=== PATIENT | male | born 1970 | race Hispanic/Latino ===

== ENCOUNTER 2018-10-02 14:22 | Emergency (ER) | payer MEDICARE ==
[~2018-10-02] VITALS: Ht 170.2 cm; Wt 70.0 kg
[~2018-10-02 14:22] MED LIST: ACTOS30 MG OR; ACTOS30 MG PO; AMITRIPTYLIN25 MG OR; AMOXICILLIN500 MG PO; DIABETA5 MG OR; DOESN'T KNOW; ENALAPRIL5 MG OR; ENALAPRIL5 MG PO; GLYBURIDE/METFO1 TAB PO; LANTUS100 MG/ML SC; MORPHINE SUL30 MG OR; NEXIUM40 M1 PO; NOVOLOG FL100 UNIT/M; OXYCODONE15 MG OR; PREVACID30 M1 OR; SIMVASTATIN20 MG PO; VISTARIL25 MG OR
[2018-10-02] MEDS ORDERED: ZOFRAN ODT8 MG PO (14:50)
[2018-10-02] MEDS ORDERED: NEXIUM40 MG PO (14:51)
[2018-10-02] MEDS ORDERED: SIMVASTATIN10 MG PO (14:52)
[2018-10-02] MEDS ORDERED: ROXICODONE15 M1 PO (14:53)
[2018-10-02] MEDS ORDERED: OXYCONTIN10 MG PO (14:54)
[2018-10-02] MEDS ORDERED: GABAPENTIN100 MG PO (15:13)
[2018-10-02] MEDS ORDERED: INVOKAMET 150-11 TAB PO (15:13)
[2018-10-02] MEDS ORDERED: TRESIBA FL100 UNIT/M (15:15)
[2018-10-02 15:18] LABS: HEMATOCRIT 36.5 % (39.0-50.0); HEMOGLOBIN 11.3 g/dl (14.0-18.0); IMMATURE GRANULOCYTES 0.3 % (0.0-5.0); MEAN CELL VOLUME 79.3 fL CALC (80.0-100.0); MEAN CORPUSCULAR HGB 24.6 pG CALC (26.0-32.0); NEUT# 5.2 thou/uL (1.82-7.42); RED BLOOD COUNT 4.6 mill/uL (4.70-6.10); RED CELL DISTRI WIDTH 15.6 % (11.5-15.5)
[2018-10-02 15:52] LABS: ALBUMIN 4.3 g/dL (3.2-5.0); ALKALINE PHOSPHATASE 77 u/l (38-126); ANION GAP 19 (6-22 (CALC)); BILIRUBIN, TOTAL 0.3 mg/dL (0.0-1.4); BUN 10 mg/dL (9-20); BUN/CREATININE RATIO 19 (12-20 (CALC)); CARBON DIOXIDE 24 mmol/l (22-30); CHLORIDE 98 mmol/l (95-108); CREATININE 0.5 mg/dL (0.7-1.3); GFR > 60 ML/MIN (>=60 (CALC)); GFR FOR AFR.AMER. > 60 ML/MIN (>=60 (CALC)); POTASSIUM 4.5 mmol/l (3.5-5.1); SGOT/AST 20 u/l (17-59); SODIUM 136 mmol/l (137-146); TOTAL PROTEIN 7.5 g/dL (6.3-8.2)
[2018-10-02 16:30] VITALS: BP 125/72
[2018-10-02] MEDS ORDERED: XANAX0.5 MG PO (16:30)
== END 2018-10-02 17:09 | disposition home or self-care (01) ==
LOC: ED 14:22
PROVIDERS: Emergency Medicine
DX: F43.0 Acute stress reaction (principal); E11.65 Type 2 diabetes mellitus with hyperglycemia; Z79.4 Long term (current) use of insulin; I10 Essential (primary) hypertension; C18.9 Malignant neoplasm of colon, unspecified

== ENCOUNTER 2020-03-25 12:29 | Emergency (ER) | payer MEDICARE ==
[~2020-03-25] VITALS: Ht 170.2 cm; Wt 93.2 kg
[~2020-03-25 12:29] MED LIST changes: +GABAPENTIN100 MG PO; +INVOKAMET 150-11 TAB PO; +NEXIUM40 MG PO; +OXYCONTIN10 MG PO; +ROXICODONE15 M1 PO; +SIMVASTATIN10 MG PO; +TRESIBA FL100 UNIT/M; +XANAX0.5 MG PO; +ZOFRAN ODT8 MG PO
[2020-03-25 14:10] VITALS: BP 137/61
== END 2020-03-25 14:10 ==
LOC: ED 12:29
DX: S68.622A Partial traumatic transphalangeal amputation of right middle finger, initial encounter (principal); I10 Essential (primary) hypertension; E11.9 Type 2 diabetes mellitus without complications; W23.0XXA Caught, crushed, jammed, or pinched between moving objects, initial encounter; Y93.89 Activity, other specified; Y92.89 Other specified places as the place of occurrence of the external cause; Y99.0 Civilian activity done for income or pay; Z79.4 Long term (current) use of insulin

== ENCOUNTER 2020-10-22 23:07 | Inpatient (IN) | payer MEDICARE ==
[~2020-10-22] VITALS: Ht 152.4 cm; Wt 77.0 kg
[2020-10-23] VITALS (19 sets, daily range): BP systolic 91–144; BP diastolic 49–82
[2020-10-23 00:13] LABS: HEMATOCRIT 41.3 % (39.0-50.0); HEMOGLOBIN 13.6 g/dl (14.0-18.0); IMMATURE GRANULOCYTES 0.3 % (0.0-5.0); MEAN CELL VOLUME 89.2 fL CALC (80.0-100.0); MEAN CORPUSCULAR HGB 29.4 pG CALC (26.0-32.0); MEAN CORPUSCULAR HGB CONC 32.9 g/dL CAL (32.0-36.0); NEUT# 8.46 thou/uL (1.82-7.42); RED BLOOD COUNT 4.63 mill/uL (4.70-6.10); RED CELL DISTRI WIDTH 15.1 % (11.5-15.5)
[2020-10-23 00:32] LABS: ALBUMIN 4.4 g/dL (3.2-5.0); ALKALINE PHOSPHATASE 62 u/l (38-126); BUN 11 mg/dL (9-20); BUN/CREATININE RATIO 14 (12-20 (CALC)); CHLORIDE 94 mmol/l (95-108); CREATININE 0.8 mg/dL (0.7-1.3); GFR > 60 ML/MIN (>=60 (CALC)); GFR FOR AFR.AMER. > 60 ML/MIN (>=60 (CALC)); POTASSIUM 3.9 mmol/l (3.5-5.1); SGOT/AST 47 u/l (17-59); TOTAL PROTEIN 7.9 g/dL (6.3-8.2)
[2020-10-23 00:40] LABS: ANION GAP 25 (6-22 (CALC)); BILIRUBIN, TOTAL 0.6 mg/dL (0.0-1.4); CARBON DIOXIDE 15 mmol/l (22-30); SODIUM 130 mmol/l (137-146)
[2020-10-23 00:44] LABS: MYOGLOBIN 49 ng/mL (0 - 121)
[2020-10-23 03:12] LABS: URINE BILIRUBIN - DIPSTICK NEGATIVE (NEGATIVE); URINE BLOOD DIPSTICK TRACE-INTACT (NEGATIVE); URINE CLARITY CLEAR; URINE COLOR YELLOW; URINE GLUCOSE - DIPSTICK >=1000 mg/dL (NEGATIVE); URINE KETONE >=80 mg/dL (NEGATIVE); URINE LEUK ESTERASE NEGATIVE (Negative); URINE NITRITE - DIPSTICK NEGATIVE (Negative); URINE PROTEIN - DIPSTICK 30 mg/dL (NEG-TRACE); URINE SPECIFIC GRAVITY 1.015; URINE UROBILINOGEN - DIPSTICK 0.2 E.U./dL (0.2)
[2020-10-23 03:25] LABS: URINE BACTERIA FEW hpf; URINE EPITHELIAL CELLS FEW EPI/hpf (0-FEW); URINE WBC 0-2 WBC/hpf (0-5)
[2020-10-23] MEDS ORDERED: MIRTAZAPINE15 MG PO (07:05)
[2020-10-23] MEDS ORDERED: ENALAPRIL10 MG PO (07:05)
[2020-10-23] MEDS ORDERED: OMEPRAZOLE DR40 MG PO (07:05)
[2020-10-23] MEDS ORDERED: ZITHROMAX Z-PA250 MG PO (07:06)
[2020-10-23] MEDS ORDERED: BUPROPION HCL150 M1 PO (07:06)
[2020-10-23] MEDS ORDERED: VIRTUSSIN A/C 11 SOL PO (07:06)
[2020-10-23] MEDS ORDERED: XULTOPHY 100/3.1 INJ SC (07:07)
[2020-10-23] MEDS ORDERED: XELODA500 MG PO (07:07)
[2020-10-23] MEDS ORDERED: MORPHINE SUL30 M3 PO (07:08)
[2020-10-23] MEDS ORDERED: SYNJARDY PO (07:09)
[2020-10-23] MEDS ORDERED: NOVOLIN R100 UNIT/1 SC (07:09)
[2020-10-23] MEDS ORDERED: SIMVASTATIN20 MG PO (07:09)
[2020-10-24] VITALS (7 sets, daily range): BP systolic 99–151; BP diastolic 48–70
[2020-10-24 05:53] LABS: HEMATOCRIT 42.7 % (39.0-50.0); HEMOGLOBIN 13.4 g/dl (14.0-18.0); MEAN CELL VOLUME 91.2 fL CALC (80.0-100.0); MEAN CORPUSCULAR HGB 28.6 pG CALC (26.0-32.0); MEAN CORPUSCULAR HGB CONC 31.4 g/dL CAL (32.0-36.0); NEUT# 11.93 thou/uL (1.82-7.42); RED BLOOD COUNT 4.68 mill/uL (4.70-6.10); RED CELL DISTRI WIDTH 15.1 % (11.5-15.5)
[2020-10-24 06:05] LABS: BUN 14 mg/dL (9-20); BUN/CREATININE RATIO 23 (12-20 (CALC)); CREATININE 0.6 mg/dL (0.7-1.3); GFR > 60 ML/MIN (>=60 (CALC)); GFR FOR AFR.AMER. > 60 ML/MIN (>=60 (CALC)); SODIUM 135 mmol/l (137-146)
[2020-10-24 06:26] LABS: ANION GAP 24 (6-22 (CALC)); C-REACTIVE PROTEIN 19.8 mg/dL (0-0.9); CARBON DIOXIDE 10 mmol/l (22-30); CHLORIDE 107 mmol/l (95-108); POTASSIUM 5.5 mmol/l (3.5-5.1)
[2020-10-25 03:54] VITALS: BP 110/65
[2020-10-25 05:33] LABS: HEMATOCRIT 41.2 % (39.0-50.0); HEMOGLOBIN 13.1 g/dl (14.0-18.0); MEAN CELL VOLUME 89.2 fL CALC (80.0-100.0); MEAN CORPUSCULAR HGB 28.4 pG CALC (26.0-32.0); MEAN CORPUSCULAR HGB CONC 31.8 g/dL CAL (32.0-36.0); RED BLOOD COUNT 4.62 mill/uL (4.70-6.10); RED CELL DISTRI WIDTH 15.4 % (11.5-15.5)
[2020-10-25 05:55] LABS: ANION GAP 22 (6-22 (CALC)); BUN 13 mg/dL (9-20); BUN/CREATININE RATIO 24 (12-20 (CALC)); CHLORIDE 107 mmol/l (95-108); CREATININE 0.5 mg/dL (0.7-1.3); GFR > 60 ML/MIN (>=60 (CALC)); GFR FOR AFR.AMER. > 60 ML/MIN (>=60 (CALC)); MAGNESIUM 2.3 mg/dL (1.6-2.3); POTASSIUM 4.8 mmol/l (3.5-5.1); SODIUM 133 mmol/l (137-146)
[2020-10-25 06:02] LABS: CARBON DIOXIDE 9 mmol/l (22-30)
[2020-10-25 10:07] VITALS: BP 109/50
[2020-10-25 11:14] VITALS: BP 125/65
[2020-10-25 15:15] VITALS: BP 141/78
[2020-10-25 20:20] VITALS: BP 114/62
[2020-10-26 00:07] VITALS: BP 88/51
[2020-10-26 04:10] VITALS: BP 123/75
[2020-10-26 05:55] LABS: HEMATOCRIT 41.1 % (39.0-50.0); HEMOGLOBIN 13.6 g/dl (14.0-18.0); IMMATURE GRANULOCYTES 0.6 % (0.0-5.0); MEAN CELL VOLUME 86.5 fL CALC (80.0-100.0); MEAN CORPUSCULAR HGB 28.6 pG CALC (26.0-32.0); MEAN CORPUSCULAR HGB CONC 33.1 g/dL CAL (32.0-36.0); NEUT# 6.94 thou/uL (1.82-7.42); RED BLOOD COUNT 4.75 mill/uL (4.70-6.10); RED CELL DISTRI WIDTH 15.4 % (11.5-15.5)
[2020-10-26 06:17] LABS: SGOT/AST 44 u/l (17-59)
[2020-10-26 06:21] LABS: BUN 12 mg/dL (9-20); BUN/CREATININE RATIO 24 (12-20 (CALC)); C-REACTIVE PROTEIN 4.4 mg/dL (0-0.9); CHLORIDE 108 mmol/l (95-108); CREATININE 0.5 mg/dL (0.7-1.3); GFR > 60 ML/MIN (>=60 (CALC)); GFR FOR AFR.AMER. > 60 ML/MIN (>=60 (CALC)); POTASSIUM 4.6 mmol/l (3.5-5.1); SODIUM 136 mmol/l (137-146)
[2020-10-26 06:23] LABS: ANION GAP 18 (6-22 (CALC)); CARBON DIOXIDE 15 mmol/l (22-30)
[2020-10-26 10:30] VITALS: BP 110/49
[2020-10-26 15:00] VITALS: BP 122/68
[2020-10-26 19:35] VITALS: BP 128/63
[2020-10-27 00:15] VITALS: BP 111/57
[2020-10-27 04:10] VITALS: BP 132/74
[2020-10-27 05:51] LABS: HEMATOCRIT 39.3 % (39.0-50.0); HEMOGLOBIN 13.2 g/dl (14.0-18.0); MEAN CELL VOLUME 85.1 fL CALC (80.0-100.0); MEAN CORPUSCULAR HGB 28.6 pG CALC (26.0-32.0); MEAN CORPUSCULAR HGB CONC 33.6 g/dL CAL (32.0-36.0); NEUT# 5.53 thou/uL (1.82-7.42); RED BLOOD COUNT 4.62 mill/uL (4.70-6.10); RED CELL DISTRI WIDTH 15.3 % (11.5-15.5)
[2020-10-27 06:17] LABS: ALKALINE PHOSPHATASE 62 u/l (38-126); BILIRUBIN, TOTAL 0.6 mg/dL (0.0-1.4); BUN 12 mg/dL (9-20); BUN/CREATININE RATIO 26 (12-20 (CALC)); CHLORIDE 104 mmol/l (95-108); CREATININE 0.5 mg/dL (0.7-1.3); GFR > 60 ML/MIN (>=60 (CALC)); GFR FOR AFR.AMER. > 60 ML/MIN (>=60 (CALC)); POTASSIUM 3.9 mmol/l (3.5-5.1); SGOT/AST 34 u/l (17-59); SODIUM 136 mmol/l (137-146)
[2020-10-27 06:21] LABS: ALBUMIN 3.1 g/dL (3.2-5.0); ANION GAP 13 (6-22 (CALC)); CARBON DIOXIDE 23 mmol/l (22-30); TOTAL PROTEIN 5.9 g/dL (6.3-8.2)
[2020-10-27 08:17] VITALS: BP 131/66
[2020-10-27 10:30] VITALS: BP 128/53
[2020-10-27 15:00] VITALS: BP 127/62
[2020-10-27 19:00] VITALS: BP 131/55
[2020-10-28] VITALS: BP 111/62
[2020-10-28 04:00] VITALS: BP 109/80
[2020-10-28 06:17] LABS: HEMATOCRIT 36.8 % (39.0-50.0); HEMOGLOBIN 12.7 g/dl (14.0-18.0); IMMATURE GRANULOCYTES 1.2 % (0.0-5.0); MEAN CELL VOLUME 83.4 fL CALC (80.0-100.0); MEAN CORPUSCULAR HGB 28.8 pG CALC (26.0-32.0); MEAN CORPUSCULAR HGB CONC 34.5 g/dL CAL (32.0-36.0); NEUT# 7.12 thou/uL (1.82-7.42); RED BLOOD COUNT 4.41 mill/uL (4.70-6.10)
[2020-10-28 06:40] LABS: ALBUMIN 2.8 g/dL (3.2-5.0); ALKALINE PHOSPHATASE 60 u/l (38-126); ANION GAP 8 (6-22 (CALC)); BILIRUBIN, TOTAL 0.5 mg/dL (0.0-1.4); BUN 11 mg/dL (9-20); BUN/CREATININE RATIO 29 (12-20 (CALC)); C-REACTIVE PROTEIN 3.3 mg/dL (0-0.9); CARBON DIOXIDE 32 mmol/l (22-30); CHLORIDE 97 mmol/l (95-108); CREATININE 0.4 mg/dL (0.7-1.3); GFR > 60 ML/MIN (>=60 (CALC)); GFR FOR AFR.AMER. > 60 ML/MIN (>=60 (CALC)); POTASSIUM 2.9 mmol/l (3.5-5.1); SGOT/AST 31 u/l (17-59); SODIUM 134 mmol/l (137-146); TOTAL PROTEIN 5.6 g/dL (6.3-8.2)
[2020-10-28 08:57] VITALS: BP 128/54
[2020-10-28 11:31] VITALS: BP 137/86
[2020-10-28 17:05] VITALS: BP 133/75
[2020-10-28 19:00] VITALS: BP 146/73
[2020-10-29] VITALS: BP 98/45
[2020-10-29 04:00] VITALS: BP 125/54
[2020-10-29 06:43] LABS: ALBUMIN 2.9 g/dL (3.2-5.0); BUN 8 mg/dL (9-20); CARBON DIOXIDE 33 mmol/l (22-30); CHLORIDE 94 mmol/l (95-108); CREATININE 0.4 mg/dL (0.7-1.3); GFR > 60 ML/MIN (>=60 (CALC)); GFR FOR AFR.AMER. > 60 ML/MIN (>=60 (CALC)); SODIUM 134 mmol/l (137-146)
[2020-10-29 08:55] VITALS: BP 139/67
[2020-10-29 10:40] VITALS: BP 115/67
[2020-10-29 14:40] VITALS: BP 118/67
[2020-10-29 19:00] VITALS: BP 107/53
[2020-10-30 00:11] VITALS: BP 146/76
[2020-10-30 05:00] VITALS: BP 128/72
[2020-10-30 06:04] LABS: HEMATOCRIT 37.5 % (39.0-50.0); HEMOGLOBIN 12.5 g/dl (14.0-18.0); MEAN CORPUSCULAR HGB CONC 33.3 g/dL CAL (32.0-36.0); NEUT# 5.7 thou/uL (1.82-7.42); RED BLOOD COUNT 4.31 mill/uL (4.70-6.10); RED CELL DISTRI WIDTH 15.1 % (11.5-15.5)
[2020-10-30 06:41] LABS: ALBUMIN 2.8 g/dL (3.2-5.0); ALKALINE PHOSPHATASE 62 u/l (38-126); BILIRUBIN, TOTAL 0.5 mg/dL (0.0-1.4); BUN 9 mg/dL (9-20); BUN/CREATININE RATIO 23 (12-20 (CALC)); CARBON DIOXIDE 39 mmol/l (22-30); CHLORIDE 93 mmol/l (95-108); CREATININE 0.4 mg/dL (0.7-1.3); GFR > 60 ML/MIN (>=60 (CALC)); GFR FOR AFR.AMER. > 60 ML/MIN (>=60 (CALC)); SGOT/AST 25 u/l (17-59); SODIUM 135 mmol/l (137-146); TOTAL PROTEIN 5.4 g/dL (6.3-8.2)
[2020-10-30 06:48] LABS: IMMATURE GRANULOCYTES 7.3 % (0.0-5.0)
[2020-10-30 06:53] LABS: ANION GAP 7 (6-22 (CALC)); C-REACTIVE PROTEIN 14.1 mg/dL (0-0.9); POTASSIUM 3.7 mmol/l (3.5-5.1)
[2020-10-30 07:48] VITALS: BP 135/66
[2020-10-30 11:05] VITALS: BP 148/67
[2020-10-30 15:20] VITALS: BP 154/75
[2020-10-30 19:00] VITALS: BP 140/74
[2020-10-31] VITALS: BP 137/67
[2020-10-31 04:00] VITALS: BP 147/76
[2020-10-31 05:59] LABS: HEMATOCRIT 36.7 % (39.0-50.0); HEMOGLOBIN 11.9 g/dl (14.0-18.0); MEAN CELL VOLUME 88.4 fL CALC (80.0-100.0); MEAN CORPUSCULAR HGB 28.7 pG CALC (26.0-32.0); MEAN CORPUSCULAR HGB CONC 32.4 g/dL CAL (32.0-36.0); RED BLOOD COUNT 4.15 mill/uL (4.70-6.10); RED CELL DISTRI WIDTH 15.3 % (11.5-15.5)
[2020-10-31 06:10] LABS: ANION GAP 6 (6-22 (CALC)); BUN 12 mg/dL (9-20); BUN/CREATININE RATIO 31 (12-20 (CALC)); CARBON DIOXIDE 39 mmol/l (22-30); CHLORIDE 91 mmol/l (95-108); CREATININE 0.4 mg/dL (0.7-1.3); GFR > 60 ML/MIN (>=60 (CALC)); GFR FOR AFR.AMER. > 60 ML/MIN (>=60 (CALC)); MAGNESIUM 2.1 mg/dL (1.6-2.3); POTASSIUM 3.6 mmol/l (3.5-5.1); SODIUM 133 mmol/l (137-146)
[2020-10-31 08:19] VITALS: BP 159/75
[2020-10-31 10:30] VITALS: BP 127/63
[2020-10-31 14:43] VITALS: BP 145/77
[2020-10-31 19:10] VITALS: BP 149/76
[2020-11-01] VITALS (7 sets, daily range): BP systolic 141–160; BP diastolic 75–90
[2020-11-01 05:40] LABS: HEMOGLOBIN 12.5 g/dl (14.0-18.0); MEAN CELL VOLUME 88.7 fL CALC (80.0-100.0); MEAN CORPUSCULAR HGB 27.7 pG CALC (26.0-32.0); MEAN CORPUSCULAR HGB CONC 31.3 g/dL CAL (32.0-36.0); NEUT# 6.49 thou/uL (1.82-7.42); RED BLOOD COUNT 4.51 mill/uL (4.70-6.10); RED CELL DISTRI WIDTH 15.5 % (11.5-15.5)
[2020-11-01 06:02] LABS: IMMATURE GRANULOCYTES 6.3 % (0.0-5.0)
[2020-11-01 06:12] LABS: ALBUMIN 2.8 g/dL (3.2-5.0); ALKALINE PHOSPHATASE 56 u/l (38-126); ANION GAP 7 (6-22 (CALC)); BILIRUBIN, TOTAL 0.5 mg/dL (0.0-1.4); BUN 12 mg/dL (9-20); BUN/CREATININE RATIO 26 (12-20 (CALC)); C-REACTIVE PROTEIN 4.2 mg/dL (0-0.9); CARBON DIOXIDE 39 mmol/l (22-30); CHLORIDE 90 mmol/l (95-108); CREATININE 0.5 mg/dL (0.7-1.3); GFR > 60 ML/MIN (>=60 (CALC)); GFR FOR AFR.AMER. > 60 ML/MIN (>=60 (CALC)); POTASSIUM 3.8 mmol/l (3.5-5.1); SGOT/AST 32 u/l (17-59); SODIUM 133 mmol/l (137-146); TOTAL PROTEIN 5.5 g/dL (6.3-8.2)
[2020-11-02 04:10] VITALS: BP 153/81
[2020-11-02 05:36] LABS: HEMATOCRIT 37.7 % (39.0-50.0); HEMOGLOBIN 12.1 g/dl (14.0-18.0); MEAN CORPUSCULAR HGB 28.9 pG CALC (26.0-32.0); MEAN CORPUSCULAR HGB CONC 32.1 g/dL CAL (32.0-36.0); RED BLOOD COUNT 4.19 mill/uL (4.70-6.10); RED CELL DISTRI WIDTH 15.6 % (11.5-15.5)
[2020-11-02 06:20] LABS: ANION GAP 9 (6-22 (CALC)); BUN 13 mg/dL (9-20); BUN/CREATININE RATIO 36 (12-20 (CALC)); CARBON DIOXIDE 35 mmol/l (22-30); CHLORIDE 94 mmol/l (95-108); CREATININE 0.4 mg/dL (0.7-1.3); GFR > 60 ML/MIN (>=60 (CALC)); GFR FOR AFR.AMER. > 60 ML/MIN (>=60 (CALC)); POTASSIUM 4.5 mmol/l (3.5-5.1); SODIUM 133 mmol/l (137-146)
[2020-11-02 07:58] VITALS: BP 158/84
[2020-11-02 10:30] VITALS: BP 144/77
[2020-11-02 16:15] VITALS: BP 137/72
[2020-11-02 20:00] VITALS: BP 164/83
[2020-11-02 23:55] VITALS: BP 169/85
[2020-11-03 04:00] VITALS: BP 171/90
[2020-11-03 05:13] LABS: HEMATOCRIT 40.4 % (39.0-50.0); HEMOGLOBIN 12.9 g/dl (14.0-18.0); MEAN CELL VOLUME 89.6 fL CALC (80.0-100.0); MEAN CORPUSCULAR HGB 28.6 pG CALC (26.0-32.0); MEAN CORPUSCULAR HGB CONC 31.9 g/dL CAL (32.0-36.0); NEUT# 10.64 thou/uL (1.82-7.42); RED BLOOD COUNT 4.51 mill/uL (4.70-6.10); RED CELL DISTRI WIDTH 15.7 % (11.5-15.5)
[2020-11-03 05:53] LABS: ALBUMIN 3.2 g/dL (3.2-5.0); ALKALINE PHOSPHATASE 65 u/l (38-126); ANION GAP 10 (6-22 (CALC)); BILIRUBIN, TOTAL 0.5 mg/dL (0.0-1.4); BUN 16 mg/dL (9-20); BUN/CREATININE RATIO 30 (12-20 (CALC)); C-REACTIVE PROTEIN 3.1 mg/dL (0-0.9); CARBON DIOXIDE 34 mmol/l (22-30); CHLORIDE 91 mmol/l (95-108); CREATININE 0.5 mg/dL (0.7-1.3); GFR > 60 ML/MIN (>=60 (CALC)); GFR FOR AFR.AMER. > 60 ML/MIN (>=60 (CALC)); POTASSIUM 4.3 mmol/l (3.5-5.1); SGOT/AST 32 u/l (17-59); SODIUM 131 mmol/l (137-146); TOTAL PROTEIN 6.1 g/dL (6.3-8.2)
[2020-11-03 08:00] VITALS: BP 156/84
[2020-11-03 11:21] VITALS: BP 125/75
[2020-11-03] MEDS ORDERED: VIRTUSSIN A/C 11 SOL PO (11:57)
[2020-11-03] MEDS ORDERED: MORPHINE SUL30 M3 PO (11:57)
[2020-11-03] MEDS ORDERED: XARELTO10 MG PO (11:58)
[2020-11-03 15:41] VITALS: BP 147/71
== END 2020-11-03 15:38 | DRG 177 ==
LOC: ED 23:07 → ED-I 10-23 02:16 → ED 10-23 02:33 → ICU 10-23 02:34 → MS2 10-23 19:07
PROVIDERS: Emergency Medicine; Internal Medicine; Internal Medicine Nephrology; Nurse Practitioner; Physician Assistant; ADMIT Internal Medicine; ATTEND Internal Medicine
PROC: XW033E5 Introduction of Remdesivir Anti-infective into Peripheral Vein, Percutaneous Approach, New Technology Group 5 (ICD-10-PCS; principal; 2020-10-23)
DX: U07.1 COVID-19 (principal); J12.82 Pneumonia due to coronavirus disease 2019; J96.01 Acute respiratory failure with hypoxia; E11.10 Type 2 diabetes mellitus with ketoacidosis without coma; C18.9 Malignant neoplasm of colon, unspecified; E87.1 Hypo-osmolality and hyponatremia; I10 Essential (primary) hypertension; E87.5 Hyperkalemia; D64.9 Anemia, unspecified; I95.9 Hypotension, unspecified; E87.6 Hypokalemia; Z90.49 Acquired absence of other specified parts of digestive tract; Z79.4 Long term (current) use of insulin; Z93.3 Colostomy status; Z79.899 Other long term (current) drug therapy
CPT/HCPCS: J1650; Q9967

== ENCOUNTER 2021-05-04 00:51 | Emergency (ER) | payer MEDICARE ==
[~2021-05-04] VITALS: Ht 170.2 cm; Wt 108.8 kg
[~2021-05-04 00:51] MED LIST changes: +BUPROPION HCL150 M1 PO; +ENALAPRIL10 MG PO; +MIRTAZAPINE15 MG PO; +MORPHINE SUL30 M3 PO; +NOVOLIN R100 UNIT/1 SC; +OMEPRAZOLE DR40 MG PO; +SYNJARDY PO; +VIRTUSSIN A/C 11 SOL PO; +XARELTO10 MG PO; +XELODA500 MG PO; +XULTOPHY 100/3.1 INJ SC; +ZITHROMAX Z-PA250 MG PO
[2021-05-04 03:20] LABS: HEMATOCRIT 43.7 % (39.0-50.0); HEMOGLOBIN 14.1 g/dl (14.0-18.0); IMMATURE GRANULOCYTES 0.3 % (0.0-5.0); MEAN CELL VOLUME 87.9 fL CALC (80.0-100.0); MEAN CORPUSCULAR HGB 28.4 pG CALC (26.0-32.0); MEAN CORPUSCULAR HGB CONC 32.3 g/dL CAL (32.0-36.0); NEUT# 6.62 thou/uL (1.82-7.42); RED BLOOD COUNT 4.97 mill/uL (4.70-6.10); RED CELL DISTRI WIDTH 17.2 % (11.5-15.5)
[2021-05-04 03:20] LABS: URINE BILIRUBIN - DIPSTICK NEGATIVE (NEGATIVE); URINE BLOOD DIPSTICK NEGATIVE (NEGATIVE); URINE COLOR YELLOW; URINE GLUCOSE - DIPSTICK >=1000 mg/dL (NEGATIVE); URINE KETONE NEGATIVE (NEGATIVE); URINE LEUK ESTERASE NEGATIVE (NEGATIVE); URINE PH 5.5 (4.5-8.0); URINE PROTEIN - DIPSTICK NEGATIVE (NEG-TRACE); URINE UROBILINOGEN - DIPSTICK 0.2 E.U./dL (0.2)
[2021-05-04 03:21] LABS: URINE NITRITE - DIPSTICK NEGATIVE (Negative)
[2021-05-04 03:46] LABS: ALBUMIN 4.3 g/dL (3.2-5.0); ALKALINE PHOSPHATASE 67 u/l (38-126); AMYLASE 113 u/l (30-110); ANION GAP 10 (6-22 (CALC)); BILIRUBIN, TOTAL 0.4 mg/dL (0.0-1.4); BUN 9 mg/dL (9-20); BUN/CREATININE RATIO 15 (12-20 (CALC)); CARBON DIOXIDE 32 mmol/l (22-30); CHLORIDE 100 mmol/l (95-108); CREATININE 0.6 mg/dL (0.7-1.3); GFR > 60 ML/MIN (>=60 (CALC)); GFR FOR AFR.AMER. > 60 ML/MIN (>=60 (CALC)); LIPASE 446 u/l (23-300); POTASSIUM 3.8 mmol/l (3.5-5.1); SGOT/AST 27 u/l (17-59); SODIUM 139 mmol/l (137-146); TOTAL PROTEIN 7.7 g/dL (6.3-8.2)
[2021-05-04 03:58] LABS: MYOGLOBIN 21 ng/mL (0 - 121)
[2021-05-04] MEDS ORDERED: ULTRAM50 M1 PO (04:56)
[2021-05-04] MEDS ORDERED: ONDANSETRON4 MG PO (04:56)
[2021-05-04 06:06] VITALS: BP 152/80
== END 2021-05-04 05:40 | disposition home or self-care (01) ==
LOC: ED 00:51
PROVIDERS: Emergency Medicine
DX: K46.9 Unspecified abdominal hernia without obstruction or gangrene (principal); I10 Essential (primary) hypertension; E11.9 Type 2 diabetes mellitus without complications; Z79.4 Long term (current) use of insulin; Z93.3 Colostomy status; Z86.16 Personal history of COVID-19; Z85.038 Personal history of other malignant neoplasm of large intestine
CPT/HCPCS: Q9967

== ENCOUNTER 2022-10-08 21:50 | Emergency (ER) | payer MEDICARE ==
[~2022-10-08] VITALS: Ht 170.2 cm; Wt 72.0 kg
[~2022-10-08 21:50] MED LIST changes: +ONDANSETRON4 MG PO; +ULTRAM50 M1 PO
[2022-10-08 23:26] LABS: BASO% 0.1 % (0-3); EOS% 1.7 % (0-8); HEMATOCRIT 38.3 % (39.0-50.0); IMMATURE GRANULOCYTES 0.9 % (0.0-5.0); LYMPH% 7.5 % (15-41); MEAN CELL VOLUME 89.5 fL CALC (80.0-100.0); MEAN CORPUSCULAR HGB 27.8 pG CALC (26.0-32.0); MEAN CORPUSCULAR HGB CONC 31.1 g/dL CAL (32.0-36.0); MONO% 8.6 % (2-13); NEUT# 6.06 thou/uL (1.82-7.42); NEUT% 81.2 % (42-76); RED BLOOD COUNT 4.28 mill/uL (4.70-6.10); RED CELL DISTRI WIDTH 16.8 % (11.5-15.5)
[2022-10-08 23:28] LABS: HEMOGLOBIN 11.9 g/dl (14.0-18.0)
[2022-10-08 23:37] LABS: ALBUMIN 3.8 g/dL (3.2-5.0); ALKALINE PHOSPHATASE 104 u/l (38-126); BILIRUBIN, TOTAL 0.2 mg/dL (0.2-1.3); BUN 13 mg/dL (9-20); BUN/CREATININE RATIO 23 (12-20 (CALC)); CARBON DIOXIDE 28 mmol/l (22-30); CHLORIDE 100 mmol/l (95-108); CREATININE 0.6 mg/dL (0.7-1.3); GFR FOR AFR.AMER. > 60 ML/MIN (>=60 (CALC)); GFR OTHER RACES > 60 ML/MIN (>=60 (CALC)); POTASSIUM 3.5 mmol/l (3.5-5.1); SGOT/AST 27 u/l (17-59)
[2022-10-08 23:38] LABS: ANION GAP 11 (6-22 (CALC)); SODIUM 135 mmol/l (137-146)
[2022-10-09] MEDS ORDERED: TORADOL PO (01:26)
[2022-10-09 01:50] VITALS: BP 139/96
== END 2022-10-09 02:09 | disposition home or self-care (01) ==
LOC: ED 21:50
PROVIDERS: Family Medicine
DX: S39.012A Strain of muscle, fascia and tendon of lower back, initial encounter (principal); I10 Essential (primary) hypertension; E11.9 Type 2 diabetes mellitus without complications; Z85.038 Personal history of other malignant neoplasm of large intestine; Z86.16 Personal history of COVID-19; Z79.4 Long term (current) use of insulin; Z90.49 Acquired absence of other specified parts of digestive tract; X58.XXXA Exposure to other specified factors, initial encounter

== ENCOUNTER 2022-11-10 19:18 | Inpatient (IN) | payer MEDICARE ==
[2022-11-10] VITALS (27 sets, daily range): BP systolic 53–148; BP diastolic 30–131
[~2022-11-10] VITALS: Ht 170.2 cm; Wt 81.8 kg
[~2022-11-10 19:18] MED LIST changes: +TORADOL PO
[2022-11-10 20:21] LABS: BASO% 0.1 % (0-3); EOS% 0.4 % (0-8); HEMATOCRIT 35.7 % (39.0-50.0); HEMOGLOBIN 11.1 g/dl (14.0-18.0); IMMATURE GRANULOCYTES 0.7 % (0.0-5.0); LYMPH% 2.2 % (15-41); MEAN CORPUSCULAR HGB 27.7 pG CALC (26.0-32.0); MEAN CORPUSCULAR HGB CONC 31.1 g/dL CAL (32.0-36.0); MONO% 5.8 % (2-13); NEUT# 12.25 thou/uL (1.82-7.42); NEUT% 90.8 % (42-76); RED BLOOD COUNT 4.01 mill/uL (4.70-6.10)
[2022-11-10 20:34] LABS: ALKALINE PHOSPHATASE 76 u/l (38-126); ANION GAP 13 (6-22 (CALC)); BUN 33 mg/dL (9-20); BUN/CREATININE RATIO 18 (12-20 (CALC)); CARBON DIOXIDE 32 mmol/l (22-30); CHLORIDE 89 mmol/l (95-108); CREATININE 1.8 mg/dL (0.7-1.3); GFR FOR AFR.AMER. 48 ML/MIN (>=60 (CALC)); GFR OTHER RACES 40 ML/MIN (>=60 (CALC)); MAGNESIUM 1.6 mg/dL (1.6-2.3); POTASSIUM 3.8 mmol/l (3.5-5.1); SGOT/AST 42 u/l (17-59); SODIUM 130 mmol/l (137-146); TOTAL PROTEIN 6.2 g/dL (6.3-8.2)
[2022-11-10 20:36] LABS: D-DIMER 1.29 mg/L (0.19-0.60)
[2022-11-10 20:45] LABS: ACT PARTIAL THROMBO TIME 26.7 SECONDS (20.0-32.5); PROTHROMBIN TIME 12.7 SECONDS (9.0-12.5)
[2022-11-10 20:46] LABS: INTERNATIONAL NORMALIZED RATIO 1.3 RATIO (0.7-1.3)
[2022-11-10] MEDS ORDERED: K-TAB20 MEQ PO (20:55)
[2022-11-10] MEDS ORDERED: ONDANSETRON4 MG/5 ML PO (20:56)
[2022-11-10] MEDS ORDERED: TIZANIDINE4 MG PO (20:58)
[2022-11-10] MEDS ORDERED: MIRTAZAPINE15 MG PO (20:59)
[2022-11-10] MEDS ORDERED: GABAPENTIN100 MG PO (21:03)
[2022-11-10] MEDS ORDERED: DRONABINOL5 MG PO (21:05)
[2022-11-10 21:20] LABS: TSH, 3RD GENERATION 1.31 uIU/mL (0.47 - 4.68)
[2022-11-11] VITALS (231 sets, daily range): BP systolic 77–181; BP diastolic 53–135
[2022-11-11 05:47] LABS: HEMATOCRIT 38.3 % (39.0-50.0); HEMOGLOBIN 11.5 g/dl (14.0-18.0); MEAN CELL VOLUME 89.9 fL CALC (80.0-100.0); RED BLOOD COUNT 4.26 mill/uL (4.70-6.10); RED CELL DISTRI WIDTH 16.3 % (11.5-15.5)
[2022-11-11 06:03] LABS: ALBUMIN 2.9 g/dL (3.2-5.0); CREATININE 1.5 mg/dL (0.7-1.3); MAGNESIUM 1.5 mg/dL (1.6-2.3); POTASSIUM 3.1 mmol/l (3.5-5.1); TOTAL PROTEIN 6.1 g/dL (6.3-8.2)
[2022-11-12] VITALS (29 sets, daily range): BP systolic 32–217; BP diastolic 17–192
[2022-11-12 05:16] LABS: HEMATOCRIT 40.6 % (39.0-50.0); HEMOGLOBIN 12.2 g/dl (14.0-18.0); MEAN CELL VOLUME 90.4 fL CALC (80.0-100.0); MEAN CORPUSCULAR HGB 27.2 pG CALC (26.0-32.0); RED BLOOD COUNT 4.49 mill/uL (4.70-6.10); RED CELL DISTRI WIDTH 16.4 % (11.5-15.5)
[2022-11-12 05:33] LABS: ALBUMIN 2.9 g/dL (3.2-5.0); CREATININE 1.7 mg/dL (0.7-1.3); TOTAL PROTEIN 6.1 g/dL (6.3-8.2)
[2022-11-12 05:37] LABS: MAGNESIUM 1.9 mg/dL (1.6-2.3)
[2022-11-12 20:41] LABS: URINE BILIRUBIN - DIPSTICK NEGATIVE (NEGATIVE); URINE BLOOD DIPSTICK LARGE (NEGATIVE); URINE COLOR YELLOW; URINE GLUCOSE - DIPSTICK >=1000 mg/dL (NEGATIVE); URINE KETONE NEGATIVE (NEGATIVE); URINE LEUK ESTERASE NEGATIVE (NEGATIVE); URINE PH 5.5 (4.5-8.0); URINE PROTEIN - DIPSTICK 100 mg/dL (NEG-TRACE); URINE SPECIFIC GRAVITY 1.025; URINE UROBILINOGEN - DIPSTICK 0.2 E.U./dL (0.2)
[2022-11-12 20:53] LABS: URINE NITRITE - DIPSTICK NEGATIVE (Negative)
[2022-11-12 20:55] LABS: URINE RBC 25-50 RBC/hpf (0-5)
[2022-11-13] VITALS (32 sets, daily range): BP systolic 53–191; BP diastolic 27–160
[2022-11-13 06:35] LABS: HEMATOCRIT 41.8 % (39.0-50.0); HEMOGLOBIN 12.5 g/dl (14.0-18.0); MEAN CELL VOLUME 91.3 fL CALC (80.0-100.0); MEAN CORPUSCULAR HGB 27.3 pG CALC (26.0-32.0); MEAN CORPUSCULAR HGB CONC 29.9 g/dL CAL (32.0-36.0); RED BLOOD COUNT 4.58 mill/uL (4.70-6.10)
[2022-11-13 07:14] LABS: ALBUMIN 2.8 g/dL (3.2-5.0); CREATININE 1.5 mg/dL (0.7-1.3); MAGNESIUM 1.8 mg/dL (1.6-2.3); POTASSIUM 3.8 mmol/l (3.5-5.1); TOTAL PROTEIN 6.3 g/dL (6.3-8.2)
== END 2022-11-13 11:54 | disposition hospice, inpatient (51) | DRG 871 ==
LOC: ED 19:18 → ED-I 21:36 → ED 21:42 → MS2 21:43 → ICU 21:43
PROVIDERS: Family Medicine; ADMIT Internal Medicine; ATTEND Internal Medicine
PROC: 3E033XZ Introduction of Vasopressor into Peripheral Vein, Percutaneous Approach (ICD-10-PCS; 2022-11-10)
PROC: 0T9B70Z Drainage of Bladder with Drainage Device, Via Natural or Artificial Opening (ICD-10-PCS; principal; 2022-11-12)
PROC: 5A09357 Assistance with Respiratory Ventilation, Less than 24 Consecutive Hours, Continuous Positive Airway Pressure (ICD-10-PCS; 2022-11-13)
DX: A41.9 Sepsis, unspecified organism (principal); E43 Unspecified severe protein-calorie malnutrition; J10.00 Influenza due to other identified influenza virus with unspecified type of pneumonia; R65.21 Severe sepsis with septic shock; N17.0 Acute kidney failure with tubular necrosis; J80 Acute respiratory distress syndrome; C18.9 Malignant neoplasm of colon, unspecified; C78.00 Secondary malignant neoplasm of unspecified lung; J91.8 Pleural effusion in other conditions classified elsewhere; E22.2 Syndrome of inappropriate secretion of antidiuretic hormone; E87.20 Acidosis, unspecified; I10 Essential (primary) hypertension; E11.649 Type 2 diabetes mellitus with hypoglycemia without coma; E86.0 Dehydration; E87.6 Hypokalemia; E83.42 Hypomagnesemia; D64.9 Anemia, unspecified; L89.90 Pressure ulcer of unspecified site, unspecified stage; Z86.16 Personal history of COVID-19; Z79.4 Long term (current) use of insulin; Z20.822 Contact with and (suspected) exposure to COVID-19; Z96.89 Presence of other specified functional implants; Z90.49 Acquired absence of other specified parts of digestive tract; Z93.3 Colostomy status; Z95.828 Presence of other vascular implants and grafts
CPT/HCPCS: J1650; J2060; J3475

== ENCOUNTER 2022-11-13 11:55 | Inpatient (IN) | payer OTHER, MEDICARE ==
[~2022-11-13 11:55] MED LIST changes: +DRONABINOL5 MG PO; +K-TAB20 MEQ PO; +ONDANSETRON4 MG/5 ML PO; +TIZANIDINE4 MG PO
--- NOTE | 2022-11-13 14:00 | NUR ---
Patient on 11/13 at 1215. Please see additional process interventions and patient notes by this telegraphic typewriter repairer under visit number [id number]. 1215: Patient clinical TOD confirmed by this telegraphic typewriter repairer and Fredy Burns RN. Family members at bedside. 1250: Richar ([facility] [place]) contacted in regards to patient's expiration status. Advised patient would be picked up within the hour. 1257: [employer] determined patient was not medically suitable for organ donation by coordinator Noemi. Patient's referral number [id number]. 1305: [facility] arrived for patient pickup. Family at bedside. 1312: Contacted by the eye bank and advised that at this momement patient was suitable for eye donation. Patient released to [facility] as hospital is without a morgue. Eye bank will f/u with family and [facility]. 1343: Patient left unit via stretcher accompained by [facility] technical support representative and staff. Family advised of departure.
== END 2022-11-13 12:15 | disposition expired | DRG 951 ==
LOC: ICU 11:55
PROVIDERS: ADMIT Internal Medicine; ATTEND Internal Medicine
DX: Z51.5 Encounter for palliative care (principal); A41.9 Sepsis, unspecified organism; J10.00 Influenza due to other identified influenza virus with unspecified type of pneumonia; R65.21 Severe sepsis with septic shock; J96.01 Acute respiratory failure with hypoxia; E43 Unspecified severe protein-calorie malnutrition; C18.9 Malignant neoplasm of colon, unspecified; C78.00 Secondary malignant neoplasm of unspecified lung; J91.8 Pleural effusion in other conditions classified elsewhere; N17.9 Acute kidney failure, unspecified; E87.20 Acidosis, unspecified; I10 Essential (primary) hypertension; E11.9 Type 2 diabetes mellitus without complications; E87.6 Hypokalemia; L89.90 Pressure ulcer of unspecified site, unspecified stage; E83.42 Hypomagnesemia; Z79.4 Long term (current) use of insulin; Z93.3 Colostomy status; Z86.16 Personal history of COVID-19; Z96.89 Presence of other specified functional implants; Z79.899 Other long term (current) drug therapy